=== PATIENT | female | born 1960 | race African-American/Black ===

== ENCOUNTER 2018-03-03 18:18 | Emergency (ER) | payer SELFPAY ==
[~2018-03-03] VITALS: Ht 167.6 cm; Wt 90.0 kg
[2018-03-03] MEDS ORDERED: IBUPROFEN 600MG TABLET PO STA (20:59)
[2018-03-03 21:35] VITALS: BP 130/80
== END 2018-03-03 21:37 | disposition home or self-care (01) ==
LOC: ER 18:18
DX: R51 Headache (principal); V49.88XA Car occupant (driver) (passenger) injured in other specified transport accidents, initial encounter; Y93.89 Activity, other specified; Y92.89 Other specified places as the place of occurrence of the external cause; Y99.8 Other external cause status
CPT/HCPCS: 99283